=== PATIENT | female | born 1970 | race Two or more races ===

== ENCOUNTER 2017-10-14 14:08 | Emergency (ER) | payer SELFPAY ==
[~2017-10-14] VITALS: Ht 172.7 cm; Wt 106.6 kg
[2017-10-14 14:15] VITALS: BP 126/87
[2017-10-14] MEDS ORDERED: TETANUS-DIPTH-ACEL PERTUSSIS 0.5ML SYRG IM ONE (16:45)
== END 2017-10-14 16:53 | disposition home or self-care (01) ==
LOC: ER 14:08
DX: S61.412A Laceration without foreign body of left hand, initial encounter (principal); Z88.0 Allergy status to penicillin; W26.0XXA Contact with knife, initial encounter; Y93.89 Activity, other specified; Y92.89 Other specified places as the place of occurrence of the external cause; Y99.8 Other external cause status
CPT/HCPCS: 12002; 90471; 90715

== ENCOUNTER 2017-10-21 10:04 | Emergency (ER) | payer MEDICAID ==
[~2017-10-21] VITALS: Ht 172.7 cm; Wt 133.8 kg
[2017-10-21 11:37] VITALS: BP 146/83
== END 2017-10-21 12:09 | disposition home or self-care (01) ==
LOC: ER 10:11
DX: S61.012D Laceration without foreign body of left thumb without damage to nail, subsequent encounter (principal); Z88.0 Allergy status to penicillin; X58.XXXD Exposure to other specified factors, subsequent encounter